=== PATIENT | female | born 1945 | race Caucasian/White ===

== ENCOUNTER → 2017-11-10 08:20 | Outpatient (CLI) | payer MEDICARE, SELFPAY ==
[2017-11-10 09:51] LABS: Add Manual Diff / Slide Review NO; Basophils Percent Auto 1.1 % (0-2); Eosinophils Percent Auto 2.9 % (2-4); Hematocrit 42.8 % (36-46); Hemoglobin 14.7 g/dL (12.0-16.0); Lymphocytes Percent Auto 34.2 % (25-40); Mean Corpuscular HGB Conc 34.2 % (30-36); Mean Corpuscular Hemoglobin 32.1 PG (26-34); Mean Corpuscular Volume 93.8 fL (80-100); Monocytes Percent Auto 11.3 % (3-14); Neutrophils Absolute Auto 2300 /uL (3000-5900); Neutrophils Percent Auto 50.5 % (50-75); Platelet Count 308 X10^3/uL (150-400); Red Blood Cell Count 4.57 X10^6/uL (4.0-5.2); Red Cell Distribution Width 13.3 % (11.6-14.8); White Blood Cell Count 4.5 X10^3/uL (4.5-11.0)
[2017-11-10 10:35] LABS: Alanine Aminotransferase 44 IU/L (9-52); Albumin 4.4 g/dL (3.5-5.0); Albumin Globulin Ratio 1.5 (1.0-2.8); Alkaline Phosphatase 71 U/L (38-126); Aspartate Aminotransferase 40 IU/L (14-36); BUN Creatinine Ratio 18.8 (6-22); Bilirubin Total 0.6 mg/dL (0.2-1.3); Blood Urea Nitrogen 15 mg/dL (7-17); Calcium 9.7 mg/dL (8.4-10.2); Carbon Dioxide 27 mmol/L (22-32); Chloride 106 mmol/L (98-107); Cholesterol 146 mg/dL (140-199); Estimated Glomerular Filt Rate > 60.0 mL/min (>60); Glucose 95 mg/dL (80-110); HDL Cholesterol 50 mg/dL (40-60); HEMOLYSIS < 15 (0-50); LDL Cholesterol Calculated 79 mg/dL (<100); Potassium 4.5 mmol/L (3.4-5.1); Sodium 142 mmol/L (137-145); Total Protein 7.4 g/dL (6.3-8.2); Triglycerides 86 mg/dL (35-150)
[2017-11-10 10:52] LABS: Thyroid Stimulating Hormone 1.09 uIU/mL (0.47-4.68)
== END ==
PROVIDERS: PCP Family Medicine; Visit Provider Family Medicine
DX: Z78.0 Asymptomatic menopausal state (principal); Z00.00 Encounter for general adult medical examination without abnormal findings
CPT/HCPCS: 36415; 80053; 80061; 84443; 85025

== ENCOUNTER → 2018-01-31 12:00 | Outpatient (CLI) | payer MEDICARE, SELFPAY ==
--- NOTE | 2018-01-31 | DI.MG.S_ITS ---
BILATERAL DIGITAL SCREENING MAMMOGRAM 3D/2D WITH CAD: 01/31/2018 CLINICAL: Routine screening. Comparison is made to exams dated: 04/09/2016 mammogram, 01/26/2013 mammogram - [facility], and 08/31/2010 mammogram - [facility]. There are scattered fibroglandular elements in both breasts. Current study was also evaluated with a Computer Aided Detection (CAD) system. There is a benign biopsy clip in the left breast. No significant masses, calcifications, or other findings are seen in either breast. There has been no significant interval change. IMPRESSION: NEGATIVE There is no mammographic evidence of malignancy. A 1 year screening mammogram is recommended. NOTE: For mammograms, a report in lay terms will be sent to the patient. Approximately 15% of breast malignancies will not be visualized mammographically. In the management of a palpable breast mass, a negative mammogram must not discourage biopsy of a clinically suspicious lesion. Electronically Signed By: Stephanie ayoub/alyson:02/01/2018 09:42:01 copy to: Marc Bonner letter sent: Normal Exam ACR BI-RADS Category 1: Negative [id number]
== END ==
PROVIDERS: PCP Family Medicine; Visit Provider Family Medicine
DX: Z12.31 Encounter for screening mammogram for malignant neoplasm of breast (principal)
CPT/HCPCS: 77063; 77067

== ENCOUNTER → 2018-02-02 17:19 | Outpatient (CLI) | payer MEDICARE, SELFPAY ==
[2018-02-02 17:55] LABS: Bilirubin Urine UA NEGATIVE (NEGATIVE); Color Urine UA YELLOW; Glucose Urine UA NEGATIVE (Normal); Ketones Urine UA NEGATIVE (NEGATIVE); Leukocyte Esterase Urine UA 1+ (NEGATIVE); Nitrite Urine UA POSITIVE (Negative); Occult Blood Urine UA 3+ (Negative); Protein Urine UA NEGATIVE (Negative); Urobilinogen Urine UA 0.2 E.U./dL (0.2)
[2018-02-02 18:38] LABS: Appearance Urine UA Slightly Cloudy
[2018-02-02 18:39] LABS: Bacteria Urine Moderate (10-30); Culture Indicated Urine Specimen Cultured; RBC Urine 5-10/HPF (0-5/HPF); Squamous Epithelial Cell Urine 0-1 /HPF; WBC Urine 30-100/HPF (0-5/HPF)
== END ==
PROVIDERS: PCP Family Medicine; Visit Provider Family Medicine
DX: R30.0 Dysuria (principal)
CPT/HCPCS: 81001; 87077; 87086; 87186

== ENCOUNTER → 2018-07-04 15:40 | Outpatient (CLI) | payer MEDICARE, SELFPAY ==
[2018-07-04 17:54] LABS: Add Manual Diff / Slide Review NO; Basophils Absolute Auto 100 /uL (0-100); Basophils Percent Auto 0.6 % (0-2); Eosinophils Absolute Auto 200 /uL (0-450); Eosinophils Percent Auto 2.6 % (2-4); Hematocrit 45.1 % (36-46); Lymphocytes Absolute Auto 1300 /uL (1100-4500); Lymphocytes Percent Auto 15.6 % (25-40); Mean Corpuscular HGB Conc 33.4 % (30-36); Mean Corpuscular Hemoglobin 31.5 PG (26-34); Mean Corpuscular Volume 94.3 fL (80-100); Monocytes Absolute Auto 1000 /uL (0-900); Monocytes Percent Auto 11.4 % (3-14); Neutrophils Absolute Auto 6000 /uL (1500-7000); Neutrophils Percent Auto 69.8 % (50-75); Platelet Count 344 X10^3/uL (150-400); Red Blood Cell Count 4.78 X10^6/uL (4.0-5.2); Red Cell Distribution Width 13.4 % (11.6-14.8); White Blood Cell Count 8.7 X10^3/uL (4.5-11.0)
[2018-07-04 18:55] LABS: Vitamin B12 388 pg/mL (239-931)
== END ==
PROVIDERS: PCP Family Medicine; Visit Provider Hospitalist
DX: M25.551 Pain in right hip (principal); M25.552 Pain in left hip; R53.83 Other fatigue
CPT/HCPCS: 36415; 82607; 85025

== ENCOUNTER → 2018-10-17 14:44 | Outpatient (CLI) | payer MEDICARE, SELFPAY ==
--- NOTE | 2018-10-17 14:46 | DI.US.S_ITS ---
ULTRASOUND OF LEFT BREAST: 10/17/2018 CLINICAL: Palpable left breast lump. Comparison is made to exams dated: 10/17/2018 mammogram, 01/31/2018 mammogram, 08/17/2016 ultrasound biopsy, 08/17/2016 mammogram, 08/06/2016 ultrasound, and 08/06/2016 mammogram - [facility]. Color flow and real-time ultrasound of the left breast were performed. Batista scale images of the real-time examination were reviewed. There is 1.2 cm x 0.4 cm x 1 cm cluster of microcysts in the left breast at 11:30 middle depth. This cyst is of mixed echogenicity with no posterior acoustic shadowing or enhancement. Color flow imaging demonstrates that there is no vascularity present. There also is a stable benign 0.9 cm x 0.9 cm x 0.8 cm mass in the left breast central to the nipple in the retroareolar region. This mass displays posterior acoustic enhancement. This correlates as palpated. IMPRESSION: PROBABLY BENIGN The 1.2 cm x 0.4 cm x 1 cm lesion in the left breast at 11:30 middle depth is consistent with complicated cysts and is probably benign. The stable 0.9 cm x 0.9 cm x 0.8 cm mass in the left breast central to the nipple in the retroareolar region is biopsy-proven to be a papilloma and is benign. A follow-up mammogram and an ultrasound in 6 months is recommended to demonstrate stability of the 11:30 lesion. Findings and recommendations were conveyed to the patient at time of exam. This exam was interpreted at Station ID: [id number]. Electronically Signed By: Rebecca rouse/:10/17/2018 16:48:22 copy to: Marc Bonner letter sent: Followup Recommended Ultrasound BI-RADS: 3 Probably benign
--- NOTE | 2018-10-17 14:46 | DI.MG.S_ITS ---
BILATERAL DIGITAL DIAGNOSTIC MAMMOGRAM 3D/2D: 10/17/2018 CLINICAL: Left breast lump. Comparison is made to exams dated: 01/31/2018 mammogram, 08/17/2016 ultrasound biopsy, 08/17/2016 mammogram, and 08/06/2016 [facility]. There are scattered fibroglandular elements in both breasts. There is a stable biopsy-proven benign mass in the left breast at 1 o'clock anterior depth. This correlates as palpated. There is a biopsy clip associated with the mass. There is also a focal asymmetry in the left breast at 12 o'clock middle depth. This is more prominent. There is possible architectural distortion associated with the focal asymmetry. No other significant masses, calcifications, or other findings are seen in either breast. IMPRESSION: INCOMPLETE: NEEDS ADDITIONAL IMAGING EVALUATION The possible focal asymmetry in the left breast at 12 o'clock middle depth is indeterminate. An ultrasound is recommended. This was performed immediately following this exam. Ultrasound is also recommended to further evaluate patient's symptoms of pain in the previosly biopsied area. This exam was interpreted at Station ID: [id number]. NOTE: For mammograms, a report in lay terms will be sent to the patient. Approximately 15% of breast malignancies will not be visualized mammographically. In the management of a palpable breast mass, a negative mammogram must not discourage biopsy of a clinically suspicious lesion. Electronically Signed By: Rebecca rouse/:10/17/2018 16:42:33 copy to: Marc Bonner [facility] BI-RADS Category 0: Incomplete [id number]
== END ==
PROVIDERS: PCP Family Medicine; Visit Provider Family Medicine
DX: R92.8 Other abnormal and inconclusive findings on diagnostic imaging of breast (principal); D24.2 Benign neoplasm of left breast; N63.22 Unspecified lump in the left breast, upper inner quadrant
CPT/HCPCS: 76642; 77066; G0279

== ENCOUNTER → 2019-05-01 14:03 | Outpatient (CLI) | payer MEDICARE, OTHER, SELFPAY ==
--- NOTE | 2019-05-01 14:06 | DI.US.S_ITS ---
ULTRASOUND OF LEFT BREAST: 05/01/2019 CLINICAL: 6 month follow-up. Comparison is made to exams dated: 05/01/2019 mammogram, 10/17/2018 ultrasound, 10/17/2018 mammogram, 01/31/2018 mammogram, 08/17/2016 ultrasound biopsy, and 08/17/2016 mammogram - [facility]. Color flow and real-time ultrasound of the left breast were performed. Batista scale images of the real-time examination were reviewed. There is a persistent 1.4 cm x 0.9 cm x 0.5 cm cyst in the left breast at 12 o'clock middle depth 3 cm from the nipple. This cyst is of mixed echogenicity with no posterior acoustic shadowing or enhancement. This abnormality is not significantly changed and correlates with mammography findings. Color flow imaging demonstrates that there is an adjacent vascularity which appears to be next to the cyst and seen in a different area not shown on the prior images. This is favored to represent a vessel coursing adjacent to the cyst. IMPRESSION: PROBABLY BENIGN The 1.4 cm x 0.9 cm x 0.5 cm cyst in the left breast is consistent with a cluster of complicated cysts and is probably benign. A follow-up left mammogram and a left ultrasound in 6 months is recommended to demonstrate stability. Patient will also be due for her routine right breast screening mammogram at that time. This exam was interpreted at Station ID: [id number]. Electronically Signed By: Cleve Montes De Oca M.D. aty/:05/01/2019 15:34:20 letter sent: Followup Recommended Ultrasound BI-RADS: 3 Probably benign
--- NOTE | 2019-05-01 14:06 | DI.MG.S_ITS ---
UNILATERAL LEFT DIGITAL DIAGNOSTIC MAMMOGRAM 3D/2D SHORT-TERM FOLLOW-UP: 05/01/2019 CLINICAL: Short term follow up. Comparison is made to exams dated: 10/17/2018 mammogram, 01/31/2018 mammogram, and 08/17/2016 mammogram - [facility]. There are scattered fibroglandular elements in left breast. There is a focal asymmetry in the left breast at 11:30 o'clock middle depth. This is not significantly changed. There also is a stable benign mass in the left breast at 1 o'clock anterior depth. This correlates as previously palpated area of clinical concern, and site of benign biopsy. There is a biopsy clip associated with the mass. No other significant masses or calcifications are seen in the breast. IMPRESSION: INCOMPLETE: NEEDS ADDITIONAL IMAGING EVALUATION The stable focal asymmetry in the left breast at 11:30 o'clock middle depth is indeterminate. An ultrasound is recommended for further evaluation and is scheduled to immediately follow this study. Stable biopsy proven benign retroareolar mass. This exam was interpreted at Station ID: [id number]. NOTE: For mammograms, a report in lay terms will be sent to the patient. Approximately 15% of breast malignancies will not be visualized mammographically. In the management of a palpable breast mass, a negative mammogram must not discourage biopsy of a clinically suspicious lesion. Electronically Signed By: Cleve Montes De Oca M.D. aty/:05/01/2019 14:38:11 ACR BI-RADS Category 0: Incomplete [id number]
== END ==
PROVIDERS: PCP Family Medicine; Visit Provider Family Medicine
DX: R92.8 Other abnormal and inconclusive findings on diagnostic imaging of breast (principal); N60.02 Solitary cyst of left breast
CPT/HCPCS: 76642; 77065; G0279

== ENCOUNTER → 2019-11-07 13:27 | Outpatient (CLI) | payer MEDICARE, OTHER, SELFPAY ==
--- NOTE | 2019-11-07 13:30 | DI.MG.S_ITS ---
BILATERAL DIGITAL DIAGNOSTIC MAMMOGRAM 3D/2D SHORT-TERM FOLLOW-UP: 11/07/2019 CLINICAL: Patient returns for a 6 month follow up of the left breast, due for bilateral exam. Comparison is made to exams dated: 05/01/2019 mammogram, 10/17/2018 mammogram, and 01/31/2018 mammogram - [facility]. There are scattered fibroglandular elements in both breasts. The focal asymmetry in the left breast at 12 o'clock middle depth is less prominent on additional views. No other significant masses, calcifications, or other findings are seen in either breast. IMPRESSION: INCOMPLETE: NEEDS ADDITIONAL IMAGING EVALUATION The focal asymmetry in the left breast is indeterminate. A targeted ultrasound of the left breast is recommended and will be performed immediately following this exam. This exam was interpreted at Station ID: [id number]. NOTE: For mammograms, a report in lay terms will be sent to the patient. Approximately 15% of breast malignancies will not be visualized mammographically. In the management of a palpable breast mass, a negative mammogram must not discourage biopsy of a clinically suspicious lesion. Electronically Signed By: Stephanie ayoub/:11/07/2019 14:49:48 ACR BI-RADS Category 0: Incomplete [id number]
--- NOTE | 2019-11-07 13:30 | DI.US.S_ITS ---
ULTRASOUND OF LEFT BREAST: 11/07/2019 CLINICAL: Patient returns for a 6 month follow up of the left breast. Comparison is made to exams dated: 11/07/2019 mammogram, 05/01/2019 ultrasound, 05/01/2019 mammogram, 10/17/2018 ultrasound, 10/17/2018 mammogram, and 01/31/2018 mammogram - [facility]. Color flow ultrasound of the left breast was performed on the areas of interest. Batista scale images of the real-time examination were reviewed. There is a stable 1.4 cm x 0.9 cm x 0.5 cm cluster of microcysts in the left breast at 12 o'clock middle depth 3 cm from the nipple. This cluster of microcysts is of mixed echogenicity. IMPRESSION: PROBABLY BENIGN The stable 1.4 cm x 0.9 cm x 0.5 cm cluster of microcysts in the left breast is probably benign. A follow-up ultrasound in 6 months is recommended to demonstrate stability. This exam was interpreted at Station ID: [id number]. Electronically Signed By: Stephanie ayoub/:11/07/2019 14:52:04 letter sent: Followup Recommended Ultrasound BI-RADS: 3 Probably benign
== END ==
PROVIDERS: PCP Family Medicine; Referring Provider Family Medicine; Visit Provider Family Medicine
DX: R92.8 Other abnormal and inconclusive findings on diagnostic imaging of breast (principal); N64.89 Other specified disorders of breast
CPT/HCPCS: 76642; 77066; G0279

== ENCOUNTER → 2019-11-26 09:35 | Outpatient (CLI) | payer MEDICARE, OTHER, SELFPAY ==
--- NOTE | 2019-11-26 09:38 | DI.RAD.S_ITS ---
PROCEDURE: XR CHEST 2V INDICATIONS: pain TECHNIQUE: 2 views of the chest were acquired. COMPARISON: [facility], CR, XR THORACIC SPINE 3V, 11/26/2019, 9:45. FINDINGS: Surgical changes and devices: None. Lungs and pleura: Lungs are clear. No pleural effusions or pneumothorax. Mediastinum: The cardiac contours are within normal limits. The aorta demonstrates calcification and tortuosity. Bones and chest wall: No suspicious bony abnormalities. Age-appropriate bony degenerative changes are seen. Accentuated thoracic kyphosis is seen. Soft tissues appear unremarkable. IMPRESSION: Clear lungs. Senescent changes are seen. Dictated by: Pablo Kiser M.D. on 11/26/2019 at 9:21 Approved by: Pablo Kiser M.D. on 11/26/2019 at 9:21
--- NOTE | 2019-11-26 09:38 | DI.RAD.S_ITS ---
PROCEDURE: XR THORACIC SPINE 3V INDICATIONS: pain TECHNIQUE: 3 views of the thoracic spine were acquired. COMPARISON: None. FINDINGS: Bones: No fractures or dislocations. No suspicious bony lesions. 12 pairs of ribs are noted, and appear intact where visualized. Accentuated thoracic kyphosis is seen. Degenerative changes are seen throughout, with scattered levels of mild to moderate disc space narrowing, with associated endplate irregularity and sclerosis. Minimal S-shaped scoliotic curvature is seen. Lower cervical spine degenerative changes are also seen. Soft tissues: No paravertebral stripe thickening. IMPRESSION: Unremarkable plain film study for age, with note made of accentuated thoracic kyphosis and degenerative changes. Dictated by: Pablo Kiser M.D. on 11/26/2019 at 9:20 Approved by: Pablo Kiser M.D. on 11/26/2019 at 9:21
== END ==
PROVIDERS: PCP Family Medicine; Referring Provider Family Medicine; Visit Provider Family Medicine
DX: M54.9 Dorsalgia, unspecified (principal); M47.814 Spondylosis without myelopathy or radiculopathy, thoracic region; M40.204 Unspecified kyphosis, thoracic region
CPT/HCPCS: 71046; 72072

== ENCOUNTER → 2019-11-26 13:06 | Outpatient (CLI) | payer MEDICARE, OTHER, SELFPAY | PROVIDERS: PCP Family Medicine; Visit Provider Family Medicine | DX: R53.83 Other fatigue (principal) ==

== ENCOUNTER → 2019-11-27 07:37 | Outpatient (CLI) | payer MEDICARE, OTHER, SELFPAY ==
[2019-11-27 11:27] LABS: Add Manual Diff / Slide Review NO; Basophils Absolute Auto 100 /uL (0-100); Eosinophils Absolute Auto 100 /uL (0-450); Eosinophils Percent Auto 2.2 % (2-4); Hematocrit 44.6 % (36-46); Hemoglobin 15.1 g/dL (12.0-16.0); Lymphocytes Absolute Auto 1800 /uL (1100-4500); Mean Corpuscular HGB Conc 33.8 % (30-36); Mean Corpuscular Hemoglobin 31.6 PG (26-34); Mean Corpuscular Volume 93.4 fL (80-100); Monocytes Absolute Auto 600 /uL (0-900); Monocytes Percent Auto 9.8 % (3-14); Neutrophils Absolute Auto 3400 /uL (1500-7000); Platelet Count 343 X10^3/uL (150-400); Red Blood Cell Count 4.78 X10^6/uL (4.0-5.2); Red Cell Distribution Width 13.6 % (11.6-14.8)
[2019-11-27 12:14] LABS: Alanine Aminotransferase 32 IU/L (<35); Albumin 4.7 g/dL (3.5-5.0); Albumin Globulin Ratio 1.6 (1.0-2.8); Alkaline Phosphatase 85 U/L (38-126); Aspartate Aminotransferase 30 IU/L (14-36); BUN Creatinine Ratio 26.4 (6-22); Bilirubin Total 0.7 mg/dL (0.2-1.3); Blood Urea Nitrogen 19 mg/dL (7-17); Carbon Dioxide 26 mmol/L (22-32); Chloride 105 mmol/L (98-107); Cholesterol 168 mg/dL (140-199); Estimated Glomerular Filt Rate > 60.0 mL/min (>60); Globulin 2.9 g/dL (1.7-4.1); Glucose 88 mg/dL (80-110); HDL Cholesterol 56 mg/dL (40-60); HEMOLYSIS < 15 (0-50); LDL Cholesterol Calculated 82 mg/dL (<100); Potassium 5.2 mmol/L (3.4-5.1); Sodium 139 mmol/L (137-145); Total Protein 7.6 g/dL (6.3-8.2); Triglycerides 148 mg/dL (35-150)
[2019-11-27 12:31] LABS: Thyroid Stimulating Hormone 1.43 uIU/mL (0.47-4.68)
[2019-11-27 13:01] LABS: Vitamin B12 378 pg/mL (239-931)
== END ==
PROVIDERS: PCP Family Medicine; Referring Provider Family Medicine; Visit Provider Family Medicine
DX: M54.9 Dorsalgia, unspecified (principal); M85.80 Other specified disorders of bone density and structure, unspecified site; R53.83 Other fatigue; Z87.81 Personal history of (healed) traumatic fracture
CPT/HCPCS: 36415; 80053; 80061; 82607; 84443; 85025

== ENCOUNTER → 2020-05-21 09:45 | Outpatient (CLI) | payer MEDICARE, OTHER, SELFPAY ==
--- NOTE | 2020-05-21 09:48 | DI.US.S_ITS ---
ULTRASOUND OF LEFT BREAST: 05/21/2020 CLINICAL: Patient returns today to evaluate a focal asymmetry in the left breast. Comparison is made to exams dated: 11/07/2019 ultrasound, 11/07/2019 mammogram, 05/01/2019 ultrasound, 05/01/2019 mammogram, 10/17/2018 ultrasound, and 10/17/2018 mammogram - [facility]. Color flow and real-time ultrasound of the left breast were performed. Batista scale images of the real-time examination were reviewed. There is a stable 1.2 cm x 1 cm x 0.6 cm cluster of irregular micro cysts in the left breast at 11 o'clock anterior depth 3 cm from the nipple. Color flow imaging demonstrates that there is no vascularity present. IMPRESSION: PROBABLY BENIGN The stable 1.2 cm cluster of irregular micro cysts in the left breast is most likely apocrine metaplasia or complicated cysts and is probably benign. Continued follow-up left ultrasound in 6 months is recommended to demonstrate stability. Future imaging is recommended as follows: 11/20/2020 screening bilateral mammogram. Findings and recommendations were conveyed to the patient at time of exam. This exam was interpreted at Station ID: [id number]. Electronically Signed By: Rebecca rouse/:05/21/2020 10:58:00 letter sent: Followup Recommended Ultrasound BI-RADS: 3 Probably benign
== END ==
PROVIDERS: PCP Internal Medicine; Referring Provider Internal Medicine; Visit Provider Internal Medicine
DX: R92.8 Other abnormal and inconclusive findings on diagnostic imaging of breast (principal); N60.02 Solitary cyst of left breast
CPT/HCPCS: 76642

== ENCOUNTER → 2020-11-10 10:03 | Outpatient (CLI) | payer MEDICARE, OTHER, SELFPAY ==
--- NOTE | 2020-11-10 10:06 | DI.US.S_ITS ---
ULTRASOUND OF LEFT BREAST: 11/10/2020 CLINICAL: 6 month follow-up of cysts. Comparison is made to exams dated: 05/21/2020 ultrasound, 11/07/2019 ultrasound, 11/07/2019 mammogram, 05/01/2019 ultrasound, 05/01/2019 mammogram, and 10/17/2018 [facility]. Color flow and real-time ultrasound of the left breast were performed. Batista scale images of the real-time examination were reviewed. Redemonstration of previously described 1.2 cm x 0.4 cm x 0.9 cm cluster of irregular micro cysts in the left breast at 11:30 o'clock anterior depth 2 cm from the nipple. These abnormalities are decreased in size and less prominent. Color flow imaging demonstrates that there is no vascularity present. IMPRESSION: BENIGN There is no sonographic evidence of malignancy. The 1.2 cm x 0.4 cm x 0.9 cm cluster of irregular micro cysts in the left breast most likely is apocrine metaplasia or complicated cysts. This finding has demonstrated two years of stability and is consistent with a benign process. Return to annual mammogram screening schedule is recommended. Of note, screening mammogram is due this month (November 2020) Findings and recommendations were conveyed to the patient during today's evaluation. This exam was interpreted at Station ID: [id number]. Electronically Signed By: Cleve Montes De Oca M.D. aty/:11/10/2020 11:13:54 letter sent: Normal Exam Ultrasound BI-RADS: 2 Benign
== END ==
PROVIDERS: PCP Internal Medicine; Referring Provider Internal Medicine; Visit Provider Internal Medicine
DX: R92.8 Other abnormal and inconclusive findings on diagnostic imaging of breast (principal); N60.02 Solitary cyst of left breast
CPT/HCPCS: 76642

== ENCOUNTER 2021-07-01 10:21 | Emergency (ER) | payer MEDICARE, OTHER, SELFPAY ==
[2021-07-01 10:33] VITALS: BP 173/89; PULSE 102; RESP 18; O2SAT 94
[2021-07-01 10:36] VITALS: BP 173/89; PULSE 95; RESP 21; TEMP 37; O2SAT 97; BMI 28.1
[2021-07-01 10:54] LABS: Add Manual Diff / Slide Review NO; Basophils Absolute Auto 100 /uL (0-100); Basophils Percent Auto 0.8 % (0-2); Eosinophils Absolute Auto 0 /uL (0-450); Eosinophils Percent Auto 0.4 % (2-4); Hematocrit 44.1 % (36-46); Hemoglobin 15.4 g/dL (12.0-16.0); Lymphocytes Absolute Auto 1600 /uL (1100-4500); Lymphocytes Percent Auto 11.5 % (25-40); Mean Corpuscular HGB Conc 34.8 % (30-36); Mean Corpuscular Hemoglobin 31.9 PG (26-34); Mean Corpuscular Volume 91.8 fL (80-100); Monocytes Absolute Auto 1400 /uL (0-900); Monocytes Percent Auto 10.5 % (3-14); Neutrophils Absolute Auto 10400 /uL (1500-7000); Neutrophils Percent Auto 76.8 % (50-75); Platelet Count 301 X10^3/uL (150-400); Red Blood Cell Count 4.81 X10^6/uL (4.0-5.2); Red Cell Distribution Width 13.5 % (11.6-14.8); White Blood Cell Count 13.6 X10^3/uL (4.5-11.0)
[2021-07-01 11:00] VITALS: BP 158/83; PULSE 93; RESP 16; O2SAT 93
[2021-07-01 11:00] LABS: Prothrombin Time 11.6 SECONDS (10.1-12.7)
[2021-07-01 11:02] LABS: PTT Partial Thromboplastin Tim 32 SECONDS (26.4-36.2)
[2021-07-01 11:04] LABS: Alanine Aminotransferase 54 IU/L (<35); Albumin 5.1 g/dL (3.5-5.0); Albumin Globulin Ratio 1.6 (1.0-2.8); Alkaline Phosphatase 75 U/L (38-126); Aspartate Aminotransferase 53 IU/L (14-36); BUN Creatinine Ratio 18.7 (6-22); Bilirubin Total 1.1 mg/dL (0.2-1.3); Blood Urea Nitrogen 14 mg/dL (7-17); Calcium 9.7 mg/dL (8.4-10.2); Carbon Dioxide 24 mmol/L (22-32); Chloride 105 mmol/L (98-107); Estimated Glomerular Filt Rate > 60.0 mL/min (>60); Globulin 3.2 g/dL (1.7-4.1); Glucose 114 mg/dL (80-110); HEMOLYSIS < 15 (0-50); Potassium 3.9 mmol/L (3.4-5.1); Sodium 137 mmol/L (137-145); Total Protein 8.3 g/dL (6.3-8.2)
[2021-07-01 11:30] VITALS: BP 146/79; PULSE 93; RESP 17; O2SAT 94
[2021-07-01 11:55] VITALS: BP 154/79; PULSE 98; RESP 20
[2021-07-01 12:00] VITALS: BP 150/80; PULSE 96; O2SAT 92
--- NOTE | 2021-07-01 12:13 | ED.GIBLEED ---
HPI - GI Bleed General Chief complaint: GI Bleed Stated complaint: GI bleed Time Seen by Provider: 07/01/21 11:12 Source: patient Mode of arrival: Ambulatory Limitations: no limitations History of Present Illness HPI Narrative: Patient is a 76-year-old female who for the past 24 hours has had multiple episodes of loose stools that are also bright red in color. She denies blood thinners. Denies frequent anti-inflammatories. Last colonoscopy was within the past 10 years and she was told that everything looked appropriate. No prior diagnosis of diverticulitis. No recent travel. No recent antibiotics. No vomiting. No urinary symptoms. No fevers. Related Data Home Medications Medication Instructions Recorded Confirmed CA PANTOTHENATE/FOLIC ACID/VIT 1 tab PO Q DAY #0 02/09/12 12/29/20 (MULTIVITAMIN) valacyclovir 1 gram tablet 1,000 mg PO TID PRN tab 11/26/19 12/29/20 lysine 1,000 mg tablet 1,000 mg PO DAILY PRN 06/30/20 12/29/20 Allergies Allergy/AdvReac Type Severity Reaction Status Date / Time Sulfa (Sulfonamide Allergy Mild Verified 07/01/21 10:36 Antibiotics) [SULFA (SULFONAMIDE ANTIBIOTICS)] Review of Systems Constitutional Constitutional: Reports as per HPI and Reports system reviewed and no additional complaints, except as documented Cardiovascular Cardiovascular: Reports system reviewed and no additional complaints, except as documented Respiratory Respiratory: Reports system reviewed and no additional complaints, except as documented Gastrointestinal Gastrointestinal: Reports as per HPI and Reports system reviewed and no additional complaints, except as documented Musculoskeletal Musculoskeletal: Reports system reviewed and no additional complaints, except as documented Integumentary/Breasts Skin/Breast: Reports system reviewed and no additional complaints, except as documented Neurologic Neurologic: Reports system reviewed and no additional complaints, except as documented Hematologic/Lymphatic On Anticoagulants: No Allergic/Immunologic Allergic/Immunologic: Reports system reviewed and no additional complaints, except as documented Patient History Medical History Abnormal Pap smear of cervix Acne Asthma Chronic cough Eczema Genital warts (~1999) GI bleeding (~2014) Hepatitis B (~1973) Herpes (~1999) Hx of compression fracture of spine Menopausal disorder Migraines (~1977) Osteopenia Pain of both hip joints (02/18/16) Painful hip (~2014) Plantar warts Postmenopausal status (02/18/16) Retinal detachment (~1985) Vision disorder Surgical History Anesthesia Broken nose (~1975) Status post tonsillectomy and adenoidectomy Family History Brother Hypertension Cancer Brother Age: 67 Hypertension Father Cancer Heart disease Hypertension Grandmother Heart disease Mother Osteoporosis Atrial fibrillation Dementia Heart disease Grandmother GI bleed Sister Age: 74 Hypertension Grandfather Rupture of esophagus Social History Smoking Status: Never smoker Smoking Status: Never smoker alcohol intake frequency: holidays/special occasions only Substance Use Type: does not use Exam Initial Vital Signs Initial Vital Signs: Vital Signs Pulse Rate 102 H 07/01/21 10:33 Respiratory Rate 18 07/01/21 10:33 Blood Pressure 173/89 H 07/01/21 10:33 Pulse Oximetry 94 07/01/21 10:33 HENMT Head: normal to inspection and normocephalic Resp Effort & Inspection: normal respiratory effort Auscultation: clear to auscultation bilaterally Cardio Rate: regular rate Rhythm: regular rhythm GI Inspection: normal to inspection Palpation: soft and No tender Skin General: no rashes or lesions noted Neuro General: patient alert, patient awake, patient oriented x3 and moves all extremities Extrem General: normal to inspection and capillary refill normal Psych Appearance: grossly normal and well kempt Course Orders Ordered: ED Orders 07/01/21 10:41 EKG-12 Lead Stat 07/01/21 10:42 Complete Blood Count AUTO DIFF Stat Comprehensive Metabolic Panel Stat Partial Thromboplastin Time Stat Prothrombin Time INR Stat Type and Screen Stat 07/01/21 11:50 Urinalysis and Microscopic Stat Urine Culture Stat Vital Signs Vital signs: Vital Signs - 8 hr 07/01/21 10:33 07/01/21 10:36 07/01/21 11:00 Temperature 98.6 F Pulse Rate 102 H 95 H 93 H Respiratory Rate 18 21 16 Blood Pressure 173/89 H 173/89 H 158/83 H Pulse Oximetry 94 97 93 07/01/21 11:30 07/01/21 11:55 07/01/21 12:00 Temperature Pulse Rate 93 H 98 H 96 H Respiratory Rate 17 20 Blood Pressure 146/79 H 154/79 H 150/80 H Pulse Oximetry 94 92 MDM - GI Bleed Lab Data Attestation: I reviewed the patient's lab results. Result diagrams: 07/01/21 10:42 07/01/21 10:42 Labs: Lab Results 07/01/21 07/01/21 07/01/21 Range/Units 10:42 10:42 10:42 WBC 13.6 H (4.5-11.0) X10^3/uL RBC 4.81 (4.0-5.2) X10^6/uL Hgb 15.4 (12.0-16.0) g/dL Hct 44.1 (36-46) % MCV 91.8 (80-100) fL MCH 31.9 (26-34) PG MCHC 34.8 (30-36) % RDW 13.5 (11.6-14.8) % Plt Count 301 (150-400) X10^3/uL Neut % (Auto) 76.8 H (50-75) % Lymph % (Auto) 11.5 L (25-40) % [place] % (Auto) 10.5 (3-14) % Eos % (Auto) 0.4 L (2-4) % Baso % (Auto) 0.8 (0-2) % Neut # (Auto) 07499 H (8922-4180) /uL Lymph # (Auto) 1600 (2753-8871) /uL [place] # (Auto) 1400 H (0-900) /uL Eos # (Auto) 0 (0-450) /uL Baso # (Auto) 100 (0-100) /uL PT 11.6 (10.1-12.7) SECONDS INR 1.0 (0.9-1.3) APTT 32 (26.4-36.2) SECONDS Sodium 137 (137-145) mmol/L Potassium 3.9 (3.4-5.1) mmol/L Chloride 105 (98-107) mmol/L Carbon Dioxide 24 (22-32) mmol/L BUN 14 (7-17) mg/dL Creatinine 0.75 (0.52-1.04) mg/dL Estimated GFR > 60.0 (>60) mL/min BUN/Creatinine Ratio 18.7 (6-22) Glucose 114 H (80-110) mg/dL Calcium 9.7 (8.4-10.2) mg/dL Total Bilirubin 1.1 (0.2-1.3) mg/dL AST 53 H (14-36) IU/L ALT 54 H (<35) IU/L Alkaline Phosphatase 75 (38-126) U/L Total Protein 8.3 H (6.3-8.2) g/dL Albumin 5.1 H (3.5-5.0) g/dL Globulin 3.2 (1.7-4.1) g/dL Albumin/Globulin Ratio 1.6 (1.0-2.8) Urine Color Urine Appearance Urine pH (4.5-8.0) Ur Specific [place] (1.000-1.035) Urine Protein (Negative) Urine Glucose (UA) (Negative) g/dL Urine Ketones (NEGATIVE) Urine Occult Blood (Negative) Urine Nitrate (Negative) Urine Bilirubin (NEGATIVE) Urine Urobilinogen (0.2) E.U./dL Ur Leukocyte Esterase (NEGATIVE) Urine RBC (0-5/HPF) Urine WBC (0-5/HPF) Ur Squamous Epith Cells (0-5/HPF) Amorphous Sediment Urine Bacteria (None) Ur Culture Indicated? Blood Type Antibody Screen 07/01/21 07/01/21 Range/Units 10:42 11:50 WBC (4.5-11.0) X10^3/uL RBC (4.0-5.2) X10^6/uL Hgb (12.0-16.0) g/dL Hct (36-46) % MCV (80-100) fL MCH (26-34) PG MCHC (30-36) % RDW (11.6-14.8) % Plt Count (150-400) X10^3/uL Neut % (Auto) (50-75) % Lymph % (Auto) (25-40) % [place] % (Auto) (3-14) % Eos % (Auto) (2-4) % Baso % (Auto) (0-2) % Neut # (Auto) (4276-8951) /uL Lymph # (Auto) (7355-5258) /uL [place] # (Auto) (0-900) /uL Eos # (Auto) (0-450) /uL Baso # (Auto) (0-100) /uL PT (10.1-12.7) SECONDS INR (0.9-1.3) APTT (26.4-36.2) SECONDS Sodium (137-145) mmol/L Potassium (3.4-5.1) mmol/L Chloride (98-107) mmol/L Carbon Dioxide (22-32) mmol/L BUN (7-17) mg/dL Creatinine (0.52-1.04) mg/dL Estimated GFR (>60) mL/min BUN/Creatinine Ratio (6-22) Glucose (80-110) mg/dL Calcium (8.4-10.2) mg/dL Total Bilirubin (0.2-1.3) mg/dL AST (14-36) IU/L ALT (<35) IU/L Alkaline Phosphatase (38-126) U/L Total Protein (6.3-8.2) g/dL Albumin (3.5-5.0) g/dL Globulin (1.7-4.1) g/dL Albumin/Globulin Ratio (1.0-2.8) Urine Color Yellow Urine Appearance Slightly cloudy Urine pH 5.5 (4.5-8.0) Ur Specific [place] 1.020 (1.000-1.035) Urine Protein Trace H (Negative) Urine Glucose (UA) Negative (Negative) g/dL Urine Ketones 2+ H (NEGATIVE) Urine Occult Blood 3+ H (Negative) Urine Nitrate Positive H (Negative) Urine Bilirubin Negative (NEGATIVE) Urine Urobilinogen 0.2 (0.2) E.U./dL Ur Leukocyte Esterase 2+ H (NEGATIVE) Urine RBC 1-5/hpf (0-5/HPF) Urine WBC 5-10/hpf H (0-5/HPF) Ur Squamous Epith Cells 0-1 /hpf (0-5/HPF) Amorphous Sediment 1+ Urine Bacteria Many (>30) H (None) Ur Culture Indicated? Specimen cultured Blood Type O Positive Antibody Screen Negative Point of Care Testing Stool Occult Blood Positive ECG Data Attestation: I personally reviewed and interpreted this ECG as follows: Interpretation: Sinus rhythm Ventricular rate and findings Left axis deviation Normal QRS No ST T wave changes MDM Narrative Medical decision making narrative: Patient is nontoxic appearing. She is not anemic. Not tachycardic. Not hypotensive. Has a benign abdominal exam. Had a long discussion with her regarding her symptoms. We discussed obtaining CT scan for further evaluation verses observation for the next 24-48 hours and returning if her symptoms worsen. There is no indication for antibiotics. The patient opted to wait to see if her symptoms do not improve and will return if her symptoms worsen. I do not think is unreasonable given her presentation. She she was given specific return precautions. She expressed understanding and agreement. Discharge Plan Departure Patient Disposition: Home Clinical Impression: Rectal bleeding Instructions: DI for Rectal Bleeding Activity Restrictions/Additional Instructions: Recommend that you continue to take all of your medications as directed. Contact your primary doctor for a follow-up. Return to the emergency department for any new or worsening symptoms. Prescriptions: No Action CA PANTOTHENATE/FOLIC ACID/VIT (MULTIVITAMIN) 1 tab PO Q DAY Qty: 0 0RF valacyclovir 1 gram tablet 1,000 mg PO TID PRN0RF lysine 1,000 mg tablet 1,000 mg PO DAILY PRN0RF Referrals: Garry Donaldson MD [Primary Care Provider] -
[2021-07-01 12:46] LABS: Bilirubin Urine UA NEGATIVE (NEGATIVE); Color Urine UA YELLOW; Glucose Urine UA NEGATIVE (Negative); Ketones Urine UA 2+ (NEGATIVE); Leukocyte Esterase Urine UA 2+ (NEGATIVE); Nitrite Urine UA POSITIVE (Negative); Occult Blood Urine UA 3+ (Negative); Protein Urine UA TRACE (Negative); Urobilinogen Urine UA 0.2 E.U./dL (0.2)
[2021-07-01 12:47] LABS: Appearance Urine UA Slightly Cloudy; pH Urine UA 5.5 (4.5-8.0)
[2021-07-01 12:52] LABS: RBC Urine 1-5/HPF (0-5/HPF)
[2021-07-01 12:53] LABS: Amorphous Sediment Urine 1+; Bacteria Urine Many (>30); Culture Indicated Urine Specimen Cultured; Squamous Epithelial Cell Urine 0-1 /HPF (0-5/HPF); WBC Urine 5-10/HPF (0-5/HPF)
== END 2021-07-01 12:22 | disposition home or self-care (01) ==
PROVIDERS: Emergency Provider Emergency Medicine; PCP Internal Medicine
DX: K62.5 Hemorrhage of anus and rectum (principal); N39.0 Urinary tract infection, site not specified; B96.1 Klebsiella pneumoniae [K. pneumoniae] as the cause of diseases classified elsewhere; Z88.2 Allergy status to sulfonamides
CPT/HCPCS: 36415; 80053; 81001; 82272; 85025; 85610; 85730; 86850; 86900; 86901; 87077; 87086; 87186; 93005; 99283; 99284

== ENCOUNTER → 2021-07-08 17:40 | Outpatient (CLI) | payer MEDICARE, OTHER, SELFPAY ==
[2021-07-08 18:39] LABS: Appearance Urine UA CLEAR; Bilirubin Urine UA NEGATIVE (NEGATIVE); Color Urine UA YELLOW; Glucose Urine UA TRACE g/dL (Negative); Ketones Urine UA TRACE (NEGATIVE); Leukocyte Esterase Urine UA TRACE (NEGATIVE); Nitrite Urine UA POSITIVE (Negative); Occult Blood Urine UA 1+ (Negative); Protein Urine UA TRACE (Negative); Specific Gravity Urine UA 1.025 (1.000-1.035); Urobilinogen Urine UA 0.2 E.U./dL (0.2)
[2021-07-08 18:51] LABS: pH Urine UA 5.5 (4.5-8.0)
[2021-07-08 18:52] LABS: Bacteria Urine Many (>30); Culture Indicated Urine Specimen Cultured; RBC Urine 0-1/HPF (0-5/HPF); Squamous Epithelial Cell Urine 1-5 /HPF (0-5/HPF); WBC Urine 5-10/HPF (0-5/HPF)
== END ==
PROVIDERS: PCP Internal Medicine; Referring Provider Nurse Practitioner; Visit Provider Nurse Practitioner
DX: N39.0 Urinary tract infection, site not specified (principal)
CPT/HCPCS: 81001; 87077; 87086

== ENCOUNTER → 2022-02-09 10:16 | Outpatient (CLI) | payer MEDICARE, OTHER, SELFPAY ==
--- NOTE | 2022-02-09 | DI.MG.S_ITS ---
BILATERAL DIGITAL SCREENING MAMMOGRAM 3D/2D WITH CAD: 02/09/2022 CLINICAL: Routine screening. Comparison is made to exams dated: 11/07/2019 mammogram, 05/01/2019 mammogram, 10/17/2018 mammogram, and 01/31/2018 mammogram - [facility]. There are scattered areas of fibroglandular density in both breasts (category b / 25%-50% glandular tissue). Current study was also evaluated with a Computer Aided Detection (CAD) system. There is a biopsy clip in the left breast. No significant masses, calcifications, or other findings are seen in either breast. There has been no significant interval change. IMPRESSION: NEGATIVE There is no mammographic evidence of malignancy. A 1 year screening mammogram is recommended. Based on the Tyrer Cuzick model (a risk assessment model) the patient's lifetime risk is 3.2% and her 10 year risk is 0.0%. According to the ACR, ACS, and NCCN guidelines, an annual breast MRI exam along with mammogram is recommended if the patient's lifetime risk is 20% or greater. This exam was interpreted at Station ID: [id number]. NOTE: For mammograms, a report in lay terms will be sent to the patient. Approximately 15% of breast malignancies will not be visualized mammographically. In the management of a palpable breast mass, a negative mammogram must not discourage biopsy of a clinically suspicious lesion. Electronically Signed By: Stephanie [email or web address]:02/09/2022 11:03:07 letter sent: Normal Exam ACR BI-RADS Category 1: Negative 3341F
== END ==
PROVIDERS: PCP Internal Medicine; Referring Provider Internal Medicine; Visit Provider Internal Medicine
DX: Z12.31 Encounter for screening mammogram for malignant neoplasm of breast (principal)
CPT/HCPCS: 77063; 77067

== ENCOUNTER → 2022-09-28 07:35 | Outpatient (CLI) | payer MEDICARE, OTHER, SELFPAY ==
--- NOTE | 2022-09-28 07:37 | DI.RAD.S_ITS ---
PROCEDURE: XR FOOT LT MIN 3V INDICATIONS: left foot pain TECHNIQUE: 3 views of the foot were acquired. COMPARISON: None. FINDINGS: Bones: Severe joint space loss and subchondral lucencies at the 1st MTP. There also scattered degenerative changes in the forefoot, particularly the 2nd DIP. Non acute/suspicious appearing lucency at the plantar surface of the cuboid seen on lateral view. Soft tissues: No suspicious calcifications elsewhere. IMPRESSION: Degenerative changes, severe at the 1st MTP and moderate the 2nd DIP. This could be sequelae of advanced osteoarthritis. Degeneration secondary to prior crystal or inflammatory arthropathy also possible. Dictated by: Dean Toledo M.D. on 09/28/2022 at 10:51 Approved by: Dean Toledo M.D. on 09/28/2022 at 10:53
[2022-09-28 09:30] LABS: Add Manual Diff / Slide Review NO; Basophils Absolute Auto 100 /uL (0-100); Basophils Percent Auto 1.1 % (0-2); Eosinophils Absolute Auto 100 /uL (0-450); Eosinophils Percent Auto 1.5 % (2-4); Hematocrit 41.1 % (36-46); Hemoglobin 14.2 g/dL (12.0-16.0); Lymphocytes Absolute Auto 1700 /uL (1100-4500); Lymphocytes Percent Auto 31.9 % (25-40); Mean Corpuscular HGB Conc 34.4 % (30-36); Mean Corpuscular Hemoglobin 32.1 PG (26-34); Mean Corpuscular Volume 93.2 fL (80-100); Monocytes Absolute Auto 600 /uL (0-900); Monocytes Percent Auto 11.2 % (3-14); Neutrophils Absolute Auto 2800 /uL (1500-7000); Neutrophils Percent Auto 54.3 % (50-75); Platelet Count 310 X10^3/uL (150-400); Red Blood Cell Count 4.41 X10^6/uL (4.0-5.2); Red Cell Distribution Width 13.3 % (11.6-14.8); White Blood Cell Count 5.2 X10^3/uL (4.5-11.0)
[2022-09-28 09:38] LABS: HEMOLYSIS < 15 (0-50); Iron 93 ug/dL (37-170)
[2022-09-28 09:49] LABS: Percent Iron Saturation 23 % (15-50); Total Iron Binding Capacity 398 ug/dL (265-497); Transferrin 293 mg/dL (206-381)
[2022-09-28 09:51] LABS: Alanine Aminotransferase 28 IU/L (<35); Albumin 4.3 g/dL (3.5-5.0); Albumin Globulin Ratio 1.6 (1.0-2.8); Alkaline Phosphatase 87 U/L (38-126); Aspartate Aminotransferase 23 IU/L (14-36); BUN Creatinine Ratio 22.5 (6-22); Bilirubin Total 0.6 mg/dL (0.2-1.3); Blood Urea Nitrogen 16 mg/dL (7-17); Calcium 9.6 mg/dL (8.4-10.2); Carbon Dioxide 23 mmol/L (22-32); Chloride 107 mmol/L (98-107); Cholesterol 157 mg/dL (140-199); Estimated Glomerular Filt Rate > 60 mL/min (>60); Globulin 2.7 g/dL (1.7-4.1); Glucose 87 mg/dL (80-110); HDL Cholesterol 57 mg/dL (40-60); HEMOLYSIS < 15 (0-50); LDL Cholesterol Calculated 81 mg/dL (<100); Potassium 4.3 mmol/L (3.4-5.1); Sodium 140 mmol/L (137-145); Triglycerides 94 mg/dL (35-150)
[2022-09-28 10:35] LABS: Hep C Virus Ab w/Reflex Quant NEGATIVE s/c (NEGATIVE); Hepatitis B Surface Antigen NEGATIVE s/c (NEGATIVE)
[2022-09-29 00:06] LABS: Hepatitis B Surf AB Quant 5.5 mIU/mL (Immunity>9.9)
[2022-09-29 03:51] LABS: Ceruloplasmin 24.2 mg/dL (19.0-39.0)
[2022-09-30 13:53] LABS: Smooth Muscle Antibody 4 Units (0-19)
[2022-10-01 20:14] LABS: ANA Screen, IFA Negative (.)
[2022-10-05 23:24] LABS: Deamidated Gliadin IgA 17 units (0-19); Deamidated Gliadin IgG 3 units (0-19); IGA 262 mg/dL (64-422); t-Transglutaminase IgA 4 U/mL (0-3)
== END ==
PROVIDERS: PCP Internal Medicine; Referring Provider Internal Medicine; Visit Provider Internal Medicine
DX: M79.672 Pain in left foot (principal); R74.01 Elevation of levels of liver transaminase levels; D64.9 Anemia, unspecified; I10 Essential (primary) hypertension; Z13.6 Encounter for screening for cardiovascular disorders; Z13.220 Encounter for screening for lipoid disorders
CPT/HCPCS: 36415; 73630; 80053; 80061; 82390; 82784; 83516; 83540; 83550; 85025; 86038; 86255; 86706; 86803; 87340

== ENCOUNTER → 2022-11-01 10:34 | Outpatient (CLI) | payer MEDICARE, OTHER, SELFPAY ==
--- NOTE | 2022-11-01 10:36 | DI.RAD.S_ITS ---
PROCEDURE: XR THORACIC SPINE 3V INDICATIONS: back pain TECHNIQUE: 3 views of the thoracic spine were acquired. COMPARISON: [facility], CR, XR THORACIC SPINE 3V, 11/26/2019, 9:45. FINDINGS: Bones: No fractures or dislocations. No suspicious bony lesions. 12 pairs of ribs are noted, and appear intact where visualized. Exaggerated thoracic kyphosis. Multilevel degenerative changes with osteophyte formation, degenerative endplate changes and disc height loss. Minimal S-shaped scoliosis. Soft tissues: No paravertebral stripe thickening. IMPRESSION: Multilevel degenerative changes of the thoracic spine. No acute fractures. Dictated by: Tyrell Nix M.D. on 11/01/2022 at 11:33 Approved by: Tyrell Nix M.D. on 11/01/2022 at 11:35
== END ==
PROVIDERS: PCP Internal Medicine; Referring Provider Internal Medicine; Visit Provider Internal Medicine
DX: M54.9 Dorsalgia, unspecified (principal); M47.814 Spondylosis without myelopathy or radiculopathy, thoracic region
CPT/HCPCS: 72072

== ENCOUNTER → 2023-12-08 14:24 | Outpatient (CLI) | payer MEDICARE, OTHER, SELFPAY ==
--- NOTE | 2023-12-08 14:26 | DI.MG.S_ITS ---
BILATERAL DIGITAL SCREENING MAMMOGRAM 3D/2D WITH CAD: 12/08/2023 CLINICAL: Routine screening. Comparison is made to exam dated: 02/09/2022 mammogram - [facility]. There are scattered areas of fibroglandular density in both breasts (category b / 25%-50% glandular tissue). Current study was also evaluated with a Computer Aided Detection (CAD) system. There is a biopsy clip in the left breast. No significant masses, calcifications, or other findings are seen in either breast. There has been no significant interval change. IMPRESSION: NEGATIVE There is no mammographic evidence of malignancy. A 1 year screening mammogram is recommended. Based on the Tyrer Cuzick model (a risk assessment model) the patient's lifetime risk is 2.5% and her 10 year risk is 0.0%. According to the ACR, ACS, and NCCN guidelines, an annual breast MRI exam along with mammogram is recommended if the patient's lifetime risk is 20% or greater. This exam was interpreted at Station ID: [id number]. NOTE: For mammograms, a report in lay terms will be sent to the patient. Approximately 15% of breast malignancies will not be visualized mammographically. In the management of a palpable breast mass, a negative mammogram must not discourage biopsy of a clinically suspicious lesion. Electronically Signed By: Korey florian/alyson:12/08/2023 14:47:12 letter sent: Normal Exam ACR BI-RADS Category 1: Negative 3341F
== END ==
LOC: MAMMO 14:25
PROVIDERS: PCP Internal Medicine; Referring Provider Internal Medicine; Visit Provider Internal Medicine
DX: Z12.31 Encounter for screening mammogram for malignant neoplasm of breast (principal); R92.323 Mammographic fibroglandular density, bilateral breasts; Z97.8 Presence of other specified devices
CPT/HCPCS: 77063; 77067

== ENCOUNTER → 2024-05-08 09:45 | Outpatient (CLI) | payer MEDICARE, OTHER, SELFPAY ==
[2024-05-08 10:30] LABS: Add Manual Diff / Slide Review NO; Basophils Absolute Auto 0 /uL (0-100); Basophils Percent Auto 0.5 % (0-2); Eosinophils Absolute Auto 0 /uL (0-450); Eosinophils Percent Auto 0.6 % (2-4); Hematocrit 45.6 % (36-46); Hemoglobin 15.3 g/dL (12.0-16.0); Lymphocytes Absolute Auto 2100 /uL (1100-4500); Lymphocytes Percent Auto 30.6 % (25-40); Mean Corpuscular HGB Conc 33.6 % (30-36); Mean Corpuscular Volume 95.3 fL (80-100); Monocytes Absolute Auto 800 /uL (0-900); Monocytes Percent Auto 11.4 % (3-14); Neutrophils Absolute Auto 3900 /uL (1500-7000); Neutrophils Percent Auto 56.9 % (50-75); Platelet Count 358 X10^3/uL (150-400); Red Blood Cell Count 4.79 X10^6/uL (4.0-5.2); Red Cell Distribution Width 13.8 % (11.6-14.8); White Blood Cell Count 6.8 X10^3/uL (4.5-11.0)
[2024-05-08 10:50] LABS: Alanine Aminotransferase 29 IU/L (<35); Albumin 4.7 g/dL (3.5-5.0); Albumin Globulin Ratio 1.7 (1.0-2.8); Alkaline Phosphatase 83 U/L (38-126); Aspartate Aminotransferase 29 IU/L (14-36); BUN Creatinine Ratio 20.8 (6-22); Bilirubin Total 0.7 mg/dL (0.2-1.3); Blood Urea Nitrogen 16 mg/dL (7-17); Calcium 9.8 mg/dL (8.4-10.2); Carbon Dioxide 23 mmol/L (22-32); Chloride 106 mmol/L (98-107); Estimated Glomerular Filt Rate > 60 mL/min (>60); Globulin 2.7 g/dL (1.7-4.1); Glucose 95 mg/dL (80-110); HEMOLYSIS < 15 (0-50); Potassium 4.6 mmol/L (3.4-5.1); Sodium 138 mmol/L (137-145); Total Protein 7.4 g/dL (6.3-8.2)
[2024-05-08 11:28] LABS: TSH w/ Reflex to FT4 1.47 uIU/mL (0.47-4.68)
== END ==
PROVIDERS: PCP Internal Medicine; Referring Provider Internal Medicine; Visit Provider Internal Medicine
DX: D64.9 Anemia, unspecified (principal); Z79.899 Other long term (current) drug therapy; E03.9 Hypothyroidism, unspecified; M85.80 Other specified disorders of bone density and structure, unspecified site; J45.909 Unspecified asthma, uncomplicated
CPT/HCPCS: 36415; 80053; 84443; 85025